=== PATIENT | male | born 1935 | race Caucasian/White ===

== ENCOUNTER 2016-08-21 08:33 | Emergency (ER) | payer OTHER ==
--- NOTE | 2016-08-21 09:04 | EDM.PDOC ---
ED HPI LOWER BACK PAIN/INJURY - General Chief Complaint: Back Pain or Injury Stated Complaint: BACK PAIN Time Seen by Provider: 08/21/16 08:59 Source of Information: Reports: Patient History Limitations: Reports: No limitations - History of Present Illness INITIAL COMMENTS - FREE TEXT/NARRATIVE: 81-year-old male who has quite significant Alzheimer's disease brought to the ED by his . Chills and complaining of right flank and lower rib pain for the last 3-4 days. No known falls or injuries. If currently traveling from [place] to [facility] where her 95-year-old mother use to resign. Pain is uncomfortable with movements like eating in the car getting in and out of bed etc. He has no history of kidney stones. No noted fever or chills. He reports that his bowels are working okay. Patient has a hard time quantifying her qualifying the intensity of the pain or the type of pain. Symptom Onset Date: 08/19/16 Timing/Duration: Reports: Day(s):, Gradual onset Location: Reports: lower (Pain is actually in his mid lower back over the 10th 11th and 12th ribs posterior laterally.) Quality: Reports: Ache Severity: moderate Place of Occurrence: other (No known injuries.) Improves with: Reports: Rest Worsens with: Reports: Movement Context: Reports: other (No known injuries). Denies: lifting, bending, fall, MVC, trauma, chronic pain/injury Associated Symptoms: Denies: Chest pain, Constipation, Cough, Diaphoresis, Difficulty walking, Fever/chills, Headache, Loss of appetite, Nausea/vomiting, Paresthesias, Problems urinating, Rash, Seizure Treatments WELFARE ADMINISTRATOR: Reports: Acetaminophen - Related Data Allergies/ADRs: Allergies Allergy/AdvReac Type Severity Reaction Status Date / Time No Known Allergies Allergy Verified 08/21/16 08:41 Home Meds: Home Meds . [Unable to Verify Home Med List] 08/21/16 [History] Past Medical History Neurological History: Reports: Alzheimers disease Psychiatric History: Reports: Alzheimers disease, Dementia Social & Family History - Tobacco Use Smoking Status *Q: Never Smoker Second Hand Smoke Exposure: No - Caffeine Use Caffeine Use: Reports: Coffee, Soda - Recreational Drug Use Recreational Drug Use: No - Living Situation & Occupation Living situation: Reports: Occupation: retired ED ROS GENERAL - Review of Systems Review Of Systems: See Below Constitutional: Reports: no symptoms HEENT: Reports: No symptoms Respiratory: Reports: No Symptoms Cardiovascular: Reports: No symptoms Endocrine: Reports: no symptoms GI/Abdominal: Reports: Constipation (occassionally) Musculoskeletal: Reports: back pain ( see HPI) Skin: Reports: no symptoms Neurological: Reports: No Symptoms Psychiatric: Reports: No symptoms Hematologic/Lymphatic: Reports: no symptoms Immunologic: Reports: no symptoms ED EXAM,LOWER BACK PAIN/INJURY - Physical Exam Exam: See Below Exam Limited By: Altered mental status (has organic brain disease) General Appearance: alert, WD/WN, no apparent distress Eye Exam: bilateral eye: normal inspection Respiratory/Chest: no respiratory distress, lungs clear, normal breath sounds, no accessory muscle use Cardiovascular: normal peripheral pulses, regular rate, rhythm, no edema, no gallop, no murmur GI/Abdominal: distended ( diffusely tympanitic to percussion. ), abnormal bowel sounds: ( mildy hyper active. ) (Male) Exam: No hernia Back Exam: other (pain to palpation over the Rt 9th to 12 th ribs posterolaterally. No muscle spasm. ) Extremities: normal inspection, normal range of motion, non-tender, normal capillary refill Neurological: alert, normal mood/affect, normal dorsiflexion, CN II-XII intact, normal gait, oriented x 3 Psychiatric: normal affect, normal mood Skin Exam: Warm, Dry, Intact, Normal color, No rash Course - Orders/Labs/Meds Labs: Laboratory Tests 08/21/16 Range/Units 08:45 Urine Color Yellow (Yellow) Urine Appearance Clear (Clear) Urine pH 6.0 (5.0-8.0) Ur Specific [place] > or = 1.030 (1.005-1.030) Urine Protein Trace H (Negative) Urine Glucose (UA) Negative (Negative) Urine Ketones Negative (Negative) Urine Occult Blood Negative (Negative) Urine Nitrite Negative (Negative) Urine Bilirubin Negative (Negative) Urine Urobilinogen 0.2 (0.2-1.0) Ur Leukocyte Esterase Negative (Negative) Urine RBC 0-5 (0-5) /hpf Urine WBC 0-5 (0-5) /hpf Ur Squamous Epith Cells 0-5 (0-5) /hpf Urine Bacteria Not seen (FEW) /hpf Urine Mucus Not seen (FEW) /hpf - Radiology Interpretation Free Text/Narrative:: 81-year-old male presents the ED for evaluation of right flank low back pain of 3 days' duration. No known injuries. Examination reveals tenderness to palpation at ribs 9 1011 and 12 posterior laterally on the right side. Overlying abrasions or contusions or swelling. There is no obvious muscles spasm in this area and he is very thin. Appears to be a rib pain and when repeated fall or bump himself accidentally without anybody knowing what has happened. Analysis has been collected but he has no history of kidney stones and doesn't appear to be in that kind of discomfort. x-rays of the ribs will be obtained. - Re-Assessments/Exams Free Text/Narrative Re-Assessment/Exam: 08/21/16 09:56 Urinalysis is completely normal. X-ray of the abdomen shows increased stool throughout the right hemicolon is a large amount of gas distending the colon in the splenic flexure. It is pushing the diaphragm up in that area. X-rays with rib deep right rib detail were carried out. I suspect there is a nondisplaced or minimally displaced fracture of the 11th rib posterior laterally. This may be an old fracture but osteopenia limits ability to identify antiquity as there is now sclerosis or bony callus around the rib. Can only see this on one film however. We will be conservative with pain medication as needed likely Tylenol due to his dementia. 08/21/16 10:21 patient's was counseled in this regard and x-rays were shown to her. Plan will be for him to use Aleve 2 tablets every 8 hours as needed and Tylenol 650 every 6 hours when necessary for other pain if needed. Also MiraLax powder one scoop daily to prevent constipation problems. Departure - Departure Time of Disposition: 10:22 Disposition: Home, Self-Care 01 Condition: fair Clinical Impression: Constipation by delayed colonic transit Fracture, rib Qualifiers: Encounter type: initial encounter Rib fracture type: single rib Fracture type: closed Laterality: right Qualified Code(s): S22.31XA - Fracture of one rib, right side, initial encounter for closed fracture Referrals: PCP,Not In Area [Primary Care Provider] - Forms: ED Department Discharge Additional Instructions: Evaluation in the emergency department today in regards to development of right sided back flank pain. Apparently been painful for the last 2-3 days. No known injuries or falls. History is limited by his dementia in terms of ability to find out if he didn't fall or hurt himself. Examination shows pain well localized to the lower ribs on the right posterior chest wall. There is no abrasions contusions or swellings in this area. The urinalysis was done and did not show any signs of infection or suggestion of kidney stone. X-ray data shows increased stool throughout the right hemicolon with some moderate constipation issues. X-ray of the chest revealed a single fracture of the 11th rib posterior laterally. It appears it is fallen or hit his back on something that is fractured a rib in the last week. Suggest treatment to be Aleve 2 tablets every 8 hours as needed for relief of pain. Her place of this Tylenol 650 mg every 6 hours as needed for pain relief. Suggest purchasing MiraLax powder in using one scoop 17 g once daily to provide regular bowel movements and prevent problems with constipation long-term.
--- NOTE | 2016-08-21 10:13 | CR ---
Abdomen: Supine view of the abdomen was obtained. Comparison: No previous study. Bowel gas pattern felt to be within normal limits. Mild vascular calcification is seen. Bony structures are within normal limits for the patient's age. Calcifications are present within the pelvis which are compatible with phleboliths. Impression: 1. Incidental findings. Diagnostic code #2
--- NOTE | 2016-08-21 10:13 | CR ---
Chest and right ribs: Frontal view of the chest is obtained as well as 4 views of the right ribs. Comparison: No previous study. Heart size is mildly enlarged. Tortuous thoracic aorta is seen. Lungs are clear. Slight deformity is noted within the right 11th rib having the appearance of an old fracture. No definite acute fracture is appreciated. Impression: 1. Old fracture within the right 11th rib. No definite acute fracture is seen within the right ribs. Nondisplaced fracture could easily be missed. 2. Mild cardiomegaly. Nothing acute is seen on frontal chest x-ray. Diagnostic code #2
[2016-08-21 10:43] VITALS: BP 158/81
== END 2016-08-21 10:40 | disposition home or self-care (01) ==
LOC: JD.ED 08:33
DX: S22.31XA Fracture of one rib, right side, initial encounter for closed fracture (principal); K59.01 Slow transit constipation; G30.9 Alzheimer's disease, unspecified; F02.81 Dementia in other diseases classified elsewhere, unspecified severity, with behavioral disturbance; X58.XXXA Exposure to other specified factors, initial encounter
CPT/HCPCS: 71101-26-RT; 71101-RT; 74000; 74000-26; 81001; 99283; 99284